=== PATIENT | female | born 1990 | race Two or more races ===

== ENCOUNTER → 2024-11-13 | Outpatient (CLI) | payer BC, MEDICAID, SELFPAY ==
--- NOTE | 2024-11-13 14:58 | XR_ITS ---
Examination: Lumbar spine 3 views TECHNIQUE: AP lateral coned lateral lower lumbar spine 3 views Date and time: November 13, 2024 1512 hours INDICATIONS: Low back pain one week. FINDINGS: Lumbar levoscoliosis 8 degrees No lumbar fracture No lumbar disc narrowing IMPRESSION: No lumbar fracture or lumbar disc narrowing
== END | disposition home or self-care (01) ==
PROVIDERS: PCP Nurse Practitioner Family; Referring Provider Nurse Practitioner Family; Visit Provider Nurse Practitioner Family
DX: M54.50 Low back pain, unspecified (principal)
CPT/HCPCS: 72100